=== PATIENT | male | born 1950 | race Caucasian/White ===

== ENCOUNTER 2019-11-02 23:09 | Inpatient (IN) | payer MEDICAID ==
[~2019-11-02] VITALS: Ht 167.6 cm; Wt 77.6 kg
[2019-11-03] MEDS ORDERED: DEXTROSE 50% WATER 50ML SYRINGE IV ONE ×2 (00:15→07:15)
[2019-11-03] MEDS ORDERED: DIPHENHYDRAMINE 50MG/ML VIAL IV PRN (01:15)
[2019-11-03] MEDS ORDERED: ACETAMINOPHEN 325MG TABLET PO PRN (01:15)
[2019-11-03] MEDS ORDERED: ONDANSETRON HCL 4MG/2ML INJ IV PRN (01:15)
[2019-11-03 02:20] LABS: CHLORIDE 100 mEq/L (98-107)
[2019-11-03 02:26] LABS: ETHANOL BLOOD < 10 mg/dL
[2019-11-03 02:32] LABS: HEMATOCRIT. 41.1 % (42.0-52.0); HEMOGLOBIN. 13.1 g/dL (14.0-18.0); MEAN CORPUSCULAR HEMOGLOBIN 32.7 pg (28.0-32.0); MEAN CORPUSCULAR VOLUME 102.5 fL (80.0-94.0); MEAN PLATELET VOLUME 8.7 fl (7.4-10.4); PLATELET 118 x1000/uL (130-400); RED BLOOD CELL COUNT 4.01 mill/uL (4.7-6.1)
[2019-11-03 02:35] LABS: INR 1.7; PROTHROMBIN TIME 17.9 sec (9.6-11.0)
[2019-11-03] MEDS ORDERED: SODIUM CHLORIDE 0.9% 1,000 ML IV ONE (03:00)
[2019-11-03] MEDS ORDERED: LACTULOSE 20G/30ML UDC PO SCH (03:00)
[2019-11-03] MEDS ORDERED: VANCOMYCIN 1 G PREMIX 200 ML IV SCH (03:00)
[2019-11-03] MEDS ORDERED: PIPERACILLIN/TAZOBACTAM 3.375GM/50ML PREMIX IV SCH (03:00)
[2019-11-03 04:53] LABS: NUCLEATED RED BLOOD CELLS 2 /100 WBC; PLATELET ESTIMATE SLIGHTLY DECREASED
[2019-11-03] MEDS: SODIUM CHLORIDE 0.9% INJ 3ML FLUSH IVF SCH ×3 (08:00→22:00)
[2019-11-03] MEDS: INSULIN LISPRO 100 UNITS/ML SUBCUT SCH ×4 (08:20→21:00)
[2019-11-03] MEDS: BLOOD SUGAR DIAGNOSTIC STRIP TEST SCH ×4 (08:44→23:15)
[2019-11-03] MEDS ORDERED: ZOLPIDEM TARTRATE 5MG TABLET PO PRN (21:00)
[2019-11-04] MEDS: DEXTROSE 50% WATER 50ML SYRINGE IV PRN ×3 (00:09→22:30)
[2019-11-04] MEDS ORDERED: DEXTROSE 50% WATER 50ML SYRINGE IV ONE ×2 (04:24→06:10)
[2019-11-04] MEDS: SODIUM CHLORIDE 0.9% INJ 3ML FLUSH IVF SCH ×3 (06:00→21:19)
[2019-11-04] MEDS: LACTULOSE 20G/30ML UDC PO SCH ×4 (06:00→21:19)
[2019-11-04] MEDS: DEXT 10% WATER 1,000 ML IV SCH (07:48)
[2019-11-04] MEDS: INSULIN LISPRO 100 UNITS/ML SUBCUT SCH ×3 (08:00→21:00)
[2019-11-04] MEDS: BLOOD SUGAR DIAGNOSTIC STRIP TEST SCH ×4 (08:00→21:19)
[2019-11-04] MEDS ORDERED: SODIUM BICARBONATE 4% (2.4MEQ) 5ML VIAL IV ONE (08:05)
[2019-11-04] MEDS ORDERED: LIDOCAINE HCL 1% 20ML VIAL (Pyxis) INJ ONE (08:06)
[2019-11-04] MEDS: PIPERACILLIN/TAZOBACTAM 2.25 G in DEXTROSE 5% WATER 50 ML IV SCH ×2 (09:49→17:00)
[2019-11-04 10:37] LABS: HEMATOCRIT. 38.7 % (42.0-52.0); HEMOGLOBIN. 12.4 g/dL (14.0-18.0); MEAN CORPUSCULAR HEMOGLOBIN 32.7 pg (28.0-32.0); MEAN CORPUSCULAR VOLUME 101.9 fL (80.0-94.0); MEAN PLATELET VOLUME 8.8 fl (7.4-10.4); PLATELET 98 x1000/uL (130-400); RED CELL DISTRIBUTION WIDTH 23.1 % (11.6-14.6)
[2019-11-04 10:46] LABS: INR 1.9; PROTHROMBIN TIME 19.7 sec (9.6-11.0)
[2019-11-04] MEDS ORDERED: VANCOMYCIN 1 G PREMIX 200 ML IV SCH (12:00)
[2019-11-04 15:51] LABS: PLATELET ESTIMATE DECREASED
[2019-11-04 16:00] VITALS: BP 91/55
[2019-11-04 16:19] VITALS: BP 91/44
[2019-11-04 17:53] VITALS: BP 112/46
[2019-11-04 20:00] VITALS: BP 111/56
[2019-11-04 22:00] VITALS: BP 103/46
[2019-11-05] VITALS (13 sets, daily range): BP systolic 40–122; BP diastolic 22–77
[2019-11-05] MEDS: PIPERACILLIN/TAZOBACTAM 2.25 G in DEXTROSE 5% WATER 50 ML IV SCH ×3 (02:26→16:44)
[2019-11-05] MEDS: DEXT 10% WATER 1,000 ML IV SCH (02:26)
[2019-11-05] MEDS: LACTULOSE 20G/30ML UDC PO SCH ×3 (06:20→21:37)
[2019-11-05] MEDS: SODIUM CHLORIDE 0.9% INJ 3ML FLUSH IVF SCH ×3 (06:20→21:37)
[2019-11-05] MEDS: INSULIN LISPRO 100 UNITS/ML SUBCUT SCH ×4 (08:00→21:00)
[2019-11-05] MEDS: BLOOD SUGAR DIAGNOSTIC STRIP TEST SCH ×4 (08:29→21:00)
[2019-11-05] MEDS ORDERED: ALBUMIN HUMAN 12.5G/250ML (5%) IV NR (13:00)
[2019-11-05] MEDS: MIDODRINE HCL 5MG TABLET PO SCH (16:44)
[2019-11-06] VITALS (14 sets, daily range): BP systolic 67–125; BP diastolic 28–71
[2019-11-06] MEDS: PIPERACILLIN/TAZOBACTAM 2.25 G in DEXTROSE 5% WATER 50 ML IV SCH ×2 (01:43→08:05)
[2019-11-06] MEDS: MIDODRINE HCL 5MG TABLET PO SCH ×3 (01:49→17:06)
[2019-11-06] MEDS: SODIUM CHLORIDE 0.9% INJ 3ML FLUSH IVF SCH ×3 (05:16→21:01)
[2019-11-06] MEDS: LACTULOSE 20G/30ML UDC PO SCH ×3 (05:16→21:01)
[2019-11-06] MEDS: DEXT 10% WATER 1,000 ML IV SCH (06:09)
[2019-11-06] MEDS: BLOOD SUGAR DIAGNOSTIC STRIP TEST SCH ×4 (07:42→21:01)
[2019-11-06] MEDS: DEXTROSE 50% WATER 50ML SYRINGE IV PRN ×2 (07:49→12:14)
[2019-11-06] MEDS: INSULIN LISPRO 100 UNITS/ML SUBCUT SCH ×4 (07:54→21:00)
[2019-11-06 09:14] LABS: BASOPHILS % 1.6 % (0.0-2.0); EOSINOPHILS % 0.9 % (0.0-5.0); HEMATOCRIT. 40.4 % (42.0-52.0); HEMOGLOBIN. 12.9 g/dL (14.0-18.0); LYMPHOCYTES % 7.9 % (20.0-50.0); MEAN CORPUSCULAR VOLUME 100.2 fL (80.0-94.0); MEAN PLATELET VOLUME 10.3 fl (7.4-10.4); MONOCYTES % 10.2 % (2.0-8.0); NEUTROPHILS % 79.4 % (40.0-76.0); PLATELET 65 x1000/uL (130-400); RED BLOOD CELL COUNT 4.03 mill/uL (4.7-6.1); RED CELL DISTRIBUTION WIDTH 22.7 % (11.6-14.6)
[2019-11-06 10:04] LABS: PLATELET ESTIMATE DECREASED
[2019-11-06] MEDS ORDERED: ALBUMIN HUMAN 25GM/100ML (25%) IV SCH (11:00)
[2019-11-06] MEDS ORDERED: VANCOMYCIN 1 G PREMIX 200 ML IV SCH (12:00)
[2019-11-07] VITALS (48 sets, daily range): BP systolic 49–158; BP diastolic 18–80
[2019-11-07] MEDS: MIDODRINE HCL 5MG TABLET PO SCH ×3 (01:46→18:06)
[2019-11-07] MEDS: DEXT 10% WATER 1,000 ML IV SCH ×2 (01:58→12:30)
[2019-11-07] MEDS: LACTULOSE 20G/30ML UDC PO SCH ×3 (06:00→23:04)
[2019-11-07] MEDS: SODIUM CHLORIDE 0.9% INJ 3ML FLUSH IVF SCH ×3 (06:24→22:00)
[2019-11-07] MEDS: ACETAMINOPHEN 325MG TABLET PO PRN (06:24)
[2019-11-07] MEDS: INSULIN LISPRO 100 UNITS/ML SUBCUT SCH ×4 (08:00→21:00)
[2019-11-07] MEDS: BLOOD SUGAR DIAGNOSTIC STRIP TEST SCH ×4 (08:20→21:00)
[2019-11-07] MEDS ORDERED: ALBUMIN HUMAN 25GM/100ML (25%) IV NR (10:00)
[2019-11-07] MEDS ORDERED: NOREPINEPHRINE 4 MG in DEXT 5% WATER 246 ML IV PRN (12:15)
[2019-11-07] MEDS ORDERED: PIPERACILLIN/TAZOBACTAM 2.25 G in DEXTROSE 5% WATER 50 ML IV SCH (14:00)
[2019-11-07] MEDS: NOREPINEPHRINE 8 MG in DEXT 5% WATER 242 ML IV PRN (14:03)
[2019-11-07 15:06] LABS: HEMATOCRIT. 40.9 % (42.0-52.0); MEAN CORPUSCULAR HEMOGLOBIN 32.6 pg (28.0-32.0); MEAN CORPUSCULAR VOLUME 102.1 fL (80.0-94.0)
[2019-11-07 15:24] LABS: PLATELET 81 x1000/uL (130-400)
[2019-11-07 15:27] LABS: PLATELET ESTIMATE DECREASED
[2019-11-07] MEDS ORDERED: AMIKACIN SULFATE 250 MG in SODIUM CHLORIDE 0.9% 100 ML IV NR (20:00)
[2019-11-07] MEDS: CEFEPIME 1,000 MG in DEXTROSE 5% WATER 50 ML IV SCH (23:04)
[2019-11-07] MEDS: METRONIDAZOLE 250MG TABLET PO SCH (23:04)
[2019-11-08] VITALS (103 sets, daily range): BP systolic 43–181; BP diastolic 16–116
[2019-11-08] MEDS: MIDODRINE HCL 5MG TABLET PO SCH ×3 (02:54→19:10)
[2019-11-08] MEDS: SODIUM CHLORIDE 0.9% INJ 3ML FLUSH IVF SCH ×3 (06:00→21:06)
[2019-11-08] MEDS: LACTULOSE 20G/30ML UDC PO SCH ×3 (06:24→21:11)
[2019-11-08] MEDS: BLOOD SUGAR DIAGNOSTIC STRIP TEST SCH ×4 (06:24→21:06)
[2019-11-08] MEDS: INSULIN LISPRO 100 UNITS/ML SUBCUT SCH ×4 (06:24→21:00)
[2019-11-08] MEDS: METRONIDAZOLE 250MG TABLET PO SCH ×3 (06:24→21:11)
[2019-11-08 07:21] LABS: HEMOGLOBIN. 13.3 g/dL (14.0-18.0); MEAN CORPUSCULAR HEMOGLOBIN 32.1 pg (28.0-32.0); MEAN PLATELET VOLUME 9.8 fl (7.4-10.4); PLATELET 79 x1000/uL (130-400); RED BLOOD CELL COUNT 4.16 mill/uL (4.7-6.1); RED CELL DISTRIBUTION WIDTH 21.9 % (11.6-14.6)
[2019-11-08] MEDS ORDERED: LIDOCAINE HCL 1% 20ML VIAL (Pyxis) INJ ONE (07:50)
[2019-11-08 10:29] LABS: PLATELET ESTIMATE DECREASED
[2019-11-08] MEDS: ACETAMINOPHEN 325MG TABLET PO PRN (10:52)
[2019-11-08] MEDS: DEXT 10% WATER 1,000 ML IV SCH ×2 (10:53→21:00)
[2019-11-08] MEDS: NOREPINEPHRINE 8 MG in DEXT 5% WATER 242 ML IV PRN (13:02)
[2019-11-08] MEDS: CEFEPIME 1,000 MG in DEXTROSE 5% WATER 50 ML IV SCH (21:11)
[2019-11-09] VITALS (101 sets, daily range): BP systolic 44–139; BP diastolic 14–104
[2019-11-09] MEDS: MIDODRINE HCL 5MG TABLET PO SCH ×3 (01:21→18:41)
[2019-11-09] MEDS: NOREPINEPHRINE 8 MG in DEXT 5% WATER 242 ML IV PRN ×3 (01:22→12:20)
[2019-11-09] MEDS: DEXT 10% WATER 1,000 ML IV SCH ×2 (04:30→20:30)
[2019-11-09 05:40] LABS: CHLORIDE 99 mEq/L (98-107)
[2019-11-09] MEDS: SODIUM CHLORIDE 0.9% INJ 3ML FLUSH IVF SCH ×3 (05:59→21:18)
[2019-11-09] MEDS: BLOOD SUGAR DIAGNOSTIC STRIP TEST SCH ×4 (06:50→20:58)
[2019-11-09] MEDS: METRONIDAZOLE 250MG TABLET PO SCH ×3 (06:53→21:22)
[2019-11-09] MEDS: LACTULOSE 20G/30ML UDC PO SCH ×3 (06:53→21:22)
[2019-11-09] MEDS: INSULIN LISPRO 100 UNITS/ML SUBCUT SCH ×3 (07:01→21:00)
[2019-11-09 07:09] LABS: HEMATOCRIT. 43.3 % (42.0-52.0); MEAN CORPUSCULAR HEMOGLOBIN 32.3 pg (28.0-32.0); MEAN CORPUSCULAR VOLUME 99.6 fL (80.0-94.0); MEAN PLATELET VOLUME 9.8 fl (7.4-10.4); PLATELET 86 x1000/uL (130-400); RED BLOOD CELL COUNT 4.35 mill/uL (4.7-6.1); RED CELL DISTRIBUTION WIDTH 22.2 % (11.6-14.6)
[2019-11-09] MEDS: PHENYLEPHRINE 20 MG in DEXT 5% WATER 248 ML IV PRN ×2 (12:07→18:28)
[2019-11-09 13:27] LABS: PLATELET ESTIMATE DECREASED
[2019-11-09] MEDS: NOREPINEPHRINE 32 MG in DEXT 5% WATER 468 ML IV PRN (19:09)
[2019-11-09] MEDS: PHENYLEPHRINE 40 MG in DEXT 5% WATER 246 ML IV PRN (20:59)
[2019-11-09] MEDS: CEFEPIME 1,000 MG in DEXTROSE 5% WATER 50 ML IV SCH (21:22)
[2019-11-10] VITALS (91 sets, daily range): BP systolic 54–123; BP diastolic 23–84
[2019-11-10] MEDS: MIDODRINE HCL 5MG TABLET PO SCH ×3 (00:57→18:57)
[2019-11-10] MEDS: PHENYLEPHRINE 40 MG in DEXT 5% WATER 246 ML IV PRN ×3 (01:02→13:42)
[2019-11-10] MEDS: SODIUM CHLORIDE 0.9% INJ 3ML FLUSH IVF SCH ×3 (05:06→21:16)
[2019-11-10] MEDS: LACTULOSE 20G/30ML UDC PO SCH ×3 (05:48→21:12)
[2019-11-10] MEDS: METRONIDAZOLE 250MG TABLET PO SCH ×3 (05:48→21:12)
[2019-11-10 06:06] LABS: HEMATOCRIT. 42.2 % (42.0-52.0); HEMOGLOBIN. 13.5 g/dL (14.0-18.0); MEAN CORPUSCULAR HEMOGLOBIN 32.2 pg (28.0-32.0); MEAN CORPUSCULAR VOLUME 100.3 fL (80.0-94.0); RED BLOOD CELL COUNT 4.21 mill/uL (4.7-6.1); RED CELL DISTRIBUTION WIDTH 21.8 % (11.6-14.6)
[2019-11-10] MEDS: BLOOD SUGAR DIAGNOSTIC STRIP TEST SCH ×4 (06:53→21:05)
[2019-11-10] MEDS: ACETAMINOPHEN 325MG TABLET PO PRN (07:00)
[2019-11-10] MEDS: INSULIN LISPRO 100 UNITS/ML SUBCUT SCH ×4 (07:03→21:00)
[2019-11-10 10:07] LABS: PLATELET ESTIMATE DECREASED
[2019-11-10 10:08] LABS: PLATELET 71 x1000/uL (130-400)
[2019-11-10] MEDS: PHENYLEPHRINE 80 MG in DEXT 5% WATER 492 ML IV PRN (16:53)
[2019-11-10] MEDS: DEXT 10% WATER 1,000 ML IV SCH (16:54)
[2019-11-10] MEDS: CEFEPIME 1,000 MG in DEXTROSE 5% WATER 50 ML IV SCH (21:05)
[2019-11-11] VITALS (43 sets, daily range): BP systolic 42–161; BP diastolic 11–125
[2019-11-11] MEDS: PHENYLEPHRINE 80 MG in DEXT 5% WATER 492 ML IV PRN ×2 (00:01→08:00)
[2019-11-11] MEDS: MIDODRINE HCL 5MG TABLET PO SCH ×3 (02:00→09:32)
[2019-11-11] MEDS: NOREPINEPHRINE 32 MG in DEXT 5% WATER 468 ML IV PRN (04:38)
[2019-11-11] MEDS: LACTULOSE 20G/30ML UDC PO SCH (05:11)
[2019-11-11] MEDS: METRONIDAZOLE 250MG TABLET PO SCH (05:11)
[2019-11-11] MEDS: SODIUM CHLORIDE 0.9% INJ 3ML FLUSH IVF SCH ×2 (05:11→15:05)
[2019-11-11] MEDS: INSULIN LISPRO 100 UNITS/ML SUBCUT SCH (08:00)
[2019-11-11] MEDS: BLOOD SUGAR DIAGNOSTIC STRIP TEST SCH ×2 (08:05→11:45)
[2019-11-11] MEDS ORDERED: MORPHINE SULFATE 250 MG in DEXT 5% WATER 240 ML IV PRN (12:15)
== END 2019-11-11 16:50 | disposition expired | DRG 720 ==
LOC: ER 23:09 → MICUSO 11-03 03:26 → EDBEDREQDT 11-03 03:33 → EDBEDREQ 11-03 03:33 → EDBEDREQSVC 11-03 03:33 → EDBEDREQTM 11-03 03:33 → 5EST 11-04 16:31 → MICUNO 11-07 13:57 → 5EST 11-07 21:15
PROVIDERS: ADMIT Internal Medicine; ATTEND Internal Medicine
PROC: 0W9G3ZZ Drainage of Peritoneal Cavity, Percutaneous Approach (ICD-10-PCS; principal; 2019-11-04)
PROC: 5A1D70Z Performance of Urinary Filtration, Intermittent, Less than 6 Hours Per Day (ICD-10-PCS; 2019-11-04)
PROC: 5A1D70Z Performance of Urinary Filtration, Intermittent, Less than 6 Hours Per Day (ICD-10-PCS; 2019-11-08)
PROC: 05HY33Z Insertion of Infusion Device into Upper Vein, Percutaneous Approach (ICD-10-PCS; 2019-11-08)
PROC: B54NZZA Ultrasonography of Left Upper Extremity Veins, Guidance (ICD-10-PCS; 2019-11-08)
PROC: 5A1D70Z Performance of Urinary Filtration, Intermittent, Less than 6 Hours Per Day (ICD-10-PCS; 2019-11-10)
DX: A41.9 Sepsis, unspecified organism (principal); K72.00 Acute and subacute hepatic failure without coma; R57.9 Shock, unspecified; E43 Unspecified severe protein-calorie malnutrition; G93.41 Metabolic encephalopathy; L89.156 Pressure-induced deep tissue damage of sacral region; R18.8 Other ascites; E11.22 Type 2 diabetes mellitus with diabetic chronic kidney disease; D69.6 Thrombocytopenia, unspecified; D68.9 Coagulation defect, unspecified; L89.626 Pressure-induced deep tissue damage of left heel; E11.649 Type 2 diabetes mellitus with hypoglycemia without coma; N18.6 End stage renal disease; I12.0 Hypertensive chronic kidney disease with stage 5 chronic kidney disease or end stage renal disease; D64.9 Anemia, unspecified; K74.60 Unspecified cirrhosis of liver; L57.0 Actinic keratosis; E87.2 Acidosis; E78.5 Hyperlipidemia, unspecified; S41.112A Laceration without foreign body of left upper arm, initial encounter; S21.119A Laceration without foreign body of unspecified front wall of thorax without penetration into thoracic cavity, initial encounter; Z20.828 Contact with and (suspected) exposure to other viral communicable diseases; X58.XXXA Exposure to other specified factors, initial encounter; Y92.89 Other specified places as the place of occurrence of the external cause; Y93.89 Activity, other specified; Y99.8 Other external cause status; Z78.1 Physical restraint status; Z99.2 Dependence on renal dialysis; Z68.27 Body mass index [BMI] 27.0-27.9, adult; K75.9 Inflammatory liver disease, unspecified
CPT/HCPCS: 36415; 49083; 71045; 76705; 76937; 80048; 80053; 80202; 80320; 82140; 82962; 83036; 83605; 83880; 84134; 84145; 84443; 84484; 85025; 93005; 93306; 93923; 99291; C1725; J0278; J0692; J2274; J2370; J2405; J2543; J3370; J3490; J7050; J7060; P9041; P9047; C9803-CS; G0480; U0003-CS